=== PATIENT | female | born 2005 | race Two or more races ===

== ENCOUNTER 2025-04-22 23:01 | Emergency (ER) | payer OTHER, SELFPAY ==
[~2025-04-22] VITALS: Ht 144.8 cm; Wt 74.6 kg
--- NOTE | 2025-04-23 00:01 | ED.PDOC ---
Back pain HPI HPI Comments YEAR OLD FEMALE PRESENTS TO THE ER WITH CC OF RIGHT ANKLE PAIN, PT STATES SHE JUMPED UP TO GET A PEICE OF TAPE OFF A HIGH WINDOW, LANDED ON HER RIGHT ANKLE THEN FELL BACK AND HIT HER HEAD (-) LOC (-) HEMATOMA, PT IS A&OX4 RR EVEN AND REGUALR NO DISTRESS NOTED AT THIS TIME. 1+ SWELLING TO THE RIGHT ANKLE, PULSES IN TACT, PT ABLE TO MOVE ALL TOES. PT DENIES N/V/D CP SOB, NUMBNESS, WEAKNESS OR ANY OTHER KNOWN INJURY. Chief Complaint: Lower Extremity Time Seen by MD: 23:23 Reviewed Notes: Nurses Notes, Medications, Allergies Allergies: Coded Allergies: NO KNOWN ALLERGIES (Unverified , 04/22/25) Information Source: Patient Mode of Arrival: Wheelchair Past Medical History PAST MEDICAL HISTORY: Denies Surgical History: Denies all surgeries TOY MECHANIC History: No Pertinent TOY MECHANIC History Family History Family History: Reviewed,noncontributory to illness, No family hx of Cancer, No family hx of DM, No family hx of Heart kristofer, No family hx of HTN, No family hx ofKidney kristofer, No family hx of Liver kristofer, No family hx of Lung kristofer, No family hx of Stroke Social History Smoker: Non-Smoker Alcohol: Denies ETOH Use Drugs: Denies Drug Use All Other Systems: Reviewed and Negative (SEE HPI) Physical Exam General Appearance: No Apparent Distress, Normal HEENT: Pharynx Normal Neck: Full Range of Motion, Non-Tender Respiratory: Lungs Clear, No Respiratory Distress, Normal Breath Sounds Cardiovascular: No Murmur, Normal Peripheral Pulses, Regular Rate/Rhythm Breast Exam: Deferred Gastrointestinal: Non Tender, Soft Genitalia: Deferred Pelvic: Deferred Rectal: Deferred Extremities: Normal capillary refill Musculoskeletal : Location: Right Extremity Location: Ankle (MILD TO MODERATE EDEMA LATERAL MALLEOLUS MODERATE TENDERNESS STRENGTH SENSORY MOTION INTACT POSITIVE PEDAL PULSE) Apperance: Normal Neurologic: Alert, No Motor Deficits, Normal Affect, Normal Mood, No Sensory Deficits Cerebellar Function: Normal Reflexes: Normal Skin: Dry, Normal Color, Warm Lymphatic: No Adenopathy Was a procedure done? Was a procedure done?: No Back Pain Differential Dx Differential Diagnosis: Fracture, Musculoskeletal Pain, Strain X-Ray, Labs, Meds, VS Vital Signs Date Time Temp Pulse Resp B/P (MAP) Pulse Ox O2 Delivery O2 Flow Rate FiO2 04/23/25 00:08 91 22 99 Room Air 04/23/25 00:08 99.2 91 22 135/54 (81) 99 99.2 04/22/25 23:03 98.4 103 28 134/70 100 98.4 Current Medications Medications (Trade) Dose Ordered Sig/Tye Route Start Time Stop Time Status Last Admin Acetaminophen/ Hydrocodone Bitart ([place] 5/325MG Tab) 1 tab ONCE ONCE PO 04/23/25 00:00 04/23/25 00:01 DC 04/23/25 00:06 Ibuprofen (Motrin Tablet) 600 mg ONCE ONCE PO 04/23/25 00:00 04/23/25 00:01 DC 04/23/25 00:06 X-Ray, Labs, Meds, VS Comment IMAGING REVIEWED BY MYSELF AND DR. SINHA, GROSS FRACTURE OR DISLOCATION NOTED. REQUESTING DISCHARGE AT THIS TIME. READ FOR RADIOLOGIST APPARENTLY A COMPUTER SYSTEM IS DOWN. PLACED IN ANKLE SPLINT AND CRUTCHES PROVIDED. ADVISED NO WEIGHT-BEARING ADVISED ON RICE. SCRIPT TRIAL OF IBUPROFEN ADVISED TAKE MEDI CATION PRESCRIBED SIDE EFFECTS DISCUSSED. ADVISED IF ANY CHANGE IN IMAGING RESULTS PATIENT WILL BE NOTIFIED. FOLLOW UP WITH HER PCP IN 2-3 DAYS. RETURN PRECAUTIONS GIVEN PATIENT INDICATES UNDERSTANDING AGREES WITH DISCHARGE PLAN OF CARE. Images Reviewed?: Images reviewed and evaluated by me Time of 1ST Reevaluation: 23:45 Reevaluation 1ST: Unchanged Time of 2ND Reevaluation: 03:01 Reevaluation 2ND: Improved Patient Education/Counseling: Diagnosis, Treatment, Prognosis, Need For Follow Up Family Education/Counseling: No Family Present SEPSIS Sepsis Screen Date sepsis recognized/suspect: Apr 22, 2025 Time Sepsis recognized/suspect: 2302 Recent Procedure: No On Antibiotic Therapy: No Respiratory Rate >20: Yes Heart Rate >90: Yes Temp<36 C (96.8 F) or >38.3 C: No SBP <90 or MAP <65 mmHG: No New Acute Mental Status Change: No Is the patient on CPAP, BIPAP,: No Physician Orders R Ankle 3 View (04/22/25 23:29) Apply Ice To Affected Area (04/22/25 23:51) Splints (04/23/25 ) Crutches And Crutch Training (04/23/25 02:43) Vital Signs Date Time Temp Pulse Resp B/P (MAP) Pulse Ox O2 Delivery O2 Flow Rate FiO2 04/23/25 00:08 91 22 99 Room Air 04/23/25 00:08 99.2 91 22 135/54 (81) 99 99.2 04/22/25 23:03 98.4 103 28 134/70 100 98.4 Medications Medications Dose Ordered Sig/Tye Route Start Time Stop Time Status Last Admin Dose Admin Acetaminophen/ Hydrocodone Bitart 1 tab ONCE ONCE PO 04/23/25 00:00 04/23/25 00:01 DC 04/23/25 00:06 Ibuprofen 600 mg ONCE ONCE PO 04/23/25 00:00 04/23/25 00:01 DC 04/23/25 00:06 Departure 1 Departure Time of Disposition: 02:59 Impression: Primary Impression: Right ankle sprain Qualified Codes: S93.401A - Sprain of unspecified ligament of right ankle, initial encounter Disposition: HOME / SELF CARE / HOMELESS Condition: Stable e-Prescriptions Ibuprofen (Ibuprofen) 800 Mg Tab 800 MG PO Q8HP PRN for 7 Days, #21 TAB Prov: JULY FORTE 04/23/25 Discharged With: Self Critical Care Note Critical Care Time?: No Stability Stability form required: No JULY FORTE Apr 23, 2025 00:01
[2025-04-23] MEDS: IBUPROFEN 600 MG TAB PO ONE (00:06)
[2025-04-23] MEDS: HYDROcodone-ACET 5/325MG TAB PO ONE (00:06)
[2025-04-23 00:08] VITALS: BP 135/54; PULSE 91; RESP 22; TEMP 99.2; O2SAT 99
[2025-04-23] MEDS ORDERED: IBUP-1456 PO (03:00)
--- NOTE | 2025-04-23 06:36 | DVH ---
CLINICAL INDICATION: INJURY/PAIN TECHNIQUE: XY R ANKLE 3 VIEW Comparison: None FINDINGS/IMPRESSION: : There is no evidence of acute fracture or dislocation. Pronounced lateral malleolar soft tissue swelling. Soft tissues are otherwise unremarkable.
== END 2025-04-23 03:17 | disposition home or self-care (01) ==
LOC: ER 23:01
DX: S93.401A Sprain of unspecified ligament of right ankle, initial encounter (principal); W19.XXXA Unspecified fall, initial encounter; Y93.89 Activity, other specified; Y92.89 Other specified places as the place of occurrence of the external cause; Y99.8 Other external cause status
CPT/HCPCS: 29515; 73610